=== PATIENT | female | born 1995 | race Hispanic/Latino ===

== ENCOUNTER 2019-07-16 15:36 | Inpatient (IN) | payer MEDICAID ==
[2019-07-16] MEDS ORDERED: fentaNYL 100 MCG/2 ML INJ IV PRN (16:02)
[2019-07-16] MEDS ORDERED: LACTATED RINGERS 1,000 ML ONE (16:04)
[2019-07-16] MEDS ORDERED: TERBUTALINE 1 MG/1 ML INJ IVP PRN (16:06)
[2019-07-16] MEDS ORDERED: LIDOCAINE (2%) 20 MG/1 ML VIAL 20 ML MDV INFILTRATI ONE (16:06)
[2019-07-16] MEDS ORDERED: MINERAL OIL 30 ML ORAL LIQD PO PRN (16:06)
[2019-07-16] MEDS ORDERED: ePHEDrine SULFATE 50 MG/1 ML INJ IV PRN (16:06)
[2019-07-16] MEDS ORDERED: TERBUTALINE 1 MG/1 ML INJ SUB-Q PRN (16:06)
[2019-07-16 16:33] LABS: Hematocrit 43.5 % (30.3-42.9); Hemoglobin 14.4 gm/dl (10.1-14.3); Mean Corpuscular HGB Conc 33 % (30-34); Mean Corpuscular Volume 78 fl (79-97); Platelet Count 228 K/mm3 (140-440); Red Blood Count 5.58 M/mm3 (3.65-5.03); Red Cell Distribution Width 15.1 % (13.2-15.2)
[2019-07-16] MEDS ORDERED: NALOXONE 2 MG/2 ML INJ IV PRN (16:38)
[2019-07-16] MEDS ORDERED: DEXMEDETOMIDINE 200 MCG/2 ML VIAL IV ONE (16:44)
[2019-07-16] MEDS ORDERED: fentaNYL-BUPIV 2 MCG/ML-0.125% 200 MCG/100 ML BAG EPIDURAL SCH (17:00)
[2019-07-16] MEDS ORDERED: OXYTOCIN 20 UNIT/1000ML DRIP 20 UNITS/1,000 ML BAG IV SCH (17:00)
[2019-07-16] MEDS ORDERED: LACTATED RINGERS 1,000 ML IV SCH (17:00)
--- NOTE | 2019-07-16 17:03 | Anesthesia Consultation ---
Anesthesia Consult and Med Hx Date of service: 07/16/19 - Airway Anesthetic Teeth Evaluation: Good ROM Head & Neck: Adequate Mental/Hyoid Distance: Adequate Mallampati Class: Class II Intubation Access Assessment: Good - Pulmonary Exam CTA: Yes - Cardiac Exam Cardiac Exam: RRR - Pre-Operative Health Status ASA Pre-Surgery Classification: ASA2, Emergency Proposed Anesthetic Plan: Epidural, Spinal - Pulmonary Hx Asthma: No COPD: No Hx Pneumonia: No - Cardiovascular System Hx Hypertension: No - Central Nervous System Hx Seizures: No Hx Psychiatric Problems: No - Endocrine Hx Renal Disease: No Hx End Stage Renal Disease: No Hx Hypothyroidism: No Hx Hyperthyroidism: No - Hematic Hx Anemia: No Hx Sickle Cell Disease: No - Other Systems Hx Alcohol Use: No
[2019-07-16] MEDS: ePHEDrine SULFATE 50 MG/1 ML INJ IV PRN ×3 (17:11→17:15)
[2019-07-16] MEDS ORDERED: PHENYLEPHRINE/NS 1,000 MCG/10 ML SYRINGE (OR USE) IV ONE (17:25)
--- NOTE | 2019-07-16 17:27 | History and Physical Report ---
History of Present Illness Date of examination: 07/16/19 Date of admission: 07/16/19 15:37 Chief complaint: Labor History of present illness: Past History : 1 Term Births: 0 Premature Births: 0 Living Children: 0 Para: 0 Mult. Births: 0 Prev : 0 Prev. attempt? 0 Aborta: 0 Elect. Ab: 0 Spont. 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 of genital herpes: no Partner hx. of genital herpes: no Rash, Viral, or Febrile illness since last LMP? no Genetic History Congenital Heart Defect: Mom: no Dad: no Santo Disease: Mom: no Dad: no Thalassemia Mom: no Dad: no Neural Tube Defect Mom: no Dad: no Down's Syndrome Mom: no Dad: no Berry-Sachs Mom: no Dad: no Sickle Cell Disease/Trait Mom: no Dad: no Hemophilia Mom: no Dad: no Muscular Dystrophy Mom: no Dad: no Cystic Fibrosis Mom: no Dad: no Dg Chorea Mom: no Dad: no Mental Retardation Mom: no Dad: no Fragile X Mom: no Dad: no Other Genetic/Chromosomal Disorder Mom: no Dad: no Child w/other defect Mom: no Dad: no Enviromental Exposures Xray Exposure: no Medication, drug, or alcohol use since LMP: no Chemical/Other Exposure: no Exposure to Cat Liter: no Hx of Parvovirus (Fifth Disease): no Occupational Exposure to Children: none Active Medications (reviewed today): None Current Allergies (reviewed today): No known allergies Tests: (1) Profile I ([id number]) HBsAg Screen Negative Negative *1 RPR Non Reactive Non Reactive *2 Rubella Antibodies, IgG 4.74 index Immune >0.99 *3 Non-immune <0.90 Equivocal 0.90 - 0.99 Immune >0.99 ABO Grouping B *4 Rh Factor Positive *5 Please note: Prior records for this patient's ABO / Rh type are not available for additional verification. Antibody Screen Negative Negative *6 WBC 7.9 x10E3/uL 3.4-10.8 *7 RBC 4.54 x10E6/uL 3.77-5.28 *8 Hemoglobin 13.2 g/dL 11.1-15.9 *9 Hematocrit 39.4 % 34.0-46.6 *10 MCV 87 fL 79-97 *11 MCH 29.1 pg 26.6-33.0 *12 MCHC 33.5 g/dL 31.5-35.7 *13 RDW 13.4 % 12.3-15.4 *14 Platelets 225 x10E3/uL 150-450 *15 Neutrophils 63 % Not Estab. *16 Lymphs 30 % Not Estab. *17 Monocytes 6 % Not Estab. *18 Eos 1 % Not Estab. *19 Basos 0 % Not Estab. *20 ! Immature Cells <No Reported Value> *21 Neutrophils (Absolute) 4.9 x10E3/uL 1.4-7.0 *22 Lymphs (Absolute) 2.4 x10E3/uL 0.7-3.1 *23 Monocytes(Absolute) 0.5 x10E3/uL 0.1-0.9 *24 Eos (Absolute) 0.1 x10E3/uL 0.0-0.4 *25 Baso (Absolute) 0.0 x10E3/uL 0.0-0.2 *26 ! Immature Granulocytes 0 % Not Estab. *27 ! Immature Grans (Abs) 0.0 x10E3/uL 0.0-0.1 *28 ! NRBC <No Reported Value> *29 Hematology Comments: <No Reported Value> *30 Tests: (2) Comp. Metabolic Panel (14) ([id number]) Glucose 71 mg/dL 65-99 *31 BUN 8 mg/dL 6-20 *32 Creatinine 0.68 mg/dL 0.57-1.00 *33 ! eGFR If NonAfricn Am 125 mL/min/1.73 >59 *34 ! eGFR If Africn Am 145 mL/min/1.73 >59 *35 BUN/Creatinine Ratio 12 9-23 *36 Sodium 137 mmol/L 134-144 *37 Potassium 4.6 mmol/L 3.5-5.2 *38 Chloride 103 mmol/L 96-106 *39 Carbon Dioxide, Total 21 mmol/L 20-29 *40 Calcium 9.2 mg/dL 8.7-10.2 *41 Protein, Total 6.6 g/dL 6.0-8.5 *42 Albumin 3.9 g/dL 3.5-5.5 *43 Globulin, Total 2.7 g/dL 1.5-4.5 *44 A/G Ratio 1.4 1.2-2.2 *45 Bilirubin, Total <0.2 mg/dL 0.0-1.2 *46 Alkaline Phosphatase 46 IU/L 39-117 *47 AST (SGOT) 10 IU/L 0-40 *48 ALT (SGPT) 6 IU/L 0-32 *49 Tests: (3) Cystic Fibrosis Profile (103337) ! CF, Screen Comment: *50 RESULTS: Negative for 32 mutations analyzed INTERPRETATION: This individual is negative for the mutations analyzed. This negative result may need further interpretation depending on the clinical indication. This result reduces but does not eliminate the risk to be a CF carrier. COMMENTS: The detection rate varies with ethnicity and is listed below. The presence of an undetected mutation in the CF gene cannot be ruled out. In the absence of family history, the remaining risk that a person with a negative result could have at least one CF mutation is listed in the table. If there is a family history of CF, these risk figures do not apply. As detailed information regarding this individual's family history would permit a more accurate assessment of this individual's risk to be a carrier of cystic fibrosis, please contact [employer] at for a revised report. Mutation Detection Detection rates are based on mutation Rates among Ethnic frequencies in patients affected with Groups cystic fibrosis. Among individuals with an atypical or mild presentation (e.g. congenital absence of the vas deferens, pancreatitis) detection rates may vary from those provided here: Carrier risk reduction when no family history Detection Ethnicity Rate Ashkenazi 08/17 to 97% Synagogue 08/16 to 90% (non-) -Senegalese to 69% 46 to 73% to 55% This interpretation is based on the clinical and family relationship information provided and the current understanding of the molecular genetics of this condition. MUTATIONS ANALYZED: G85E V520F I3178V 2183AA to G R117H G542X Q9739R 2184delA R334W S549N 394delTT 2789+5G to A R347H S549R 621+1G to T 3120+1G to A R347P G551D 711+1G to T 3659delC A455E R553X 1078delT 3849+10kbC to T ExfrcB323 R560T 1717-1G to A 3876delA [id number] H1945D 1898+1G to A 3905insT METHODS/LIMITATIONS: DNA is isolated from the sample and tested for the 32 CF mutations on the [employer] Platform ([employer] Regions of the CFTR gene are amplified enzymatically and subjected to a solution-phase multiplex allele-specific primer extension with subsequent hybridization to a bead array and fluorescence detection. Polymorphisms F508C, I506V and I507V are included in this panel to rule out false positive [id number] homozygotes. Reflex testing of 5T is included in the panel for R117H interpretation. False positive or negative results may occur for reasons that include genetic variants, blood transfusions, bone marrow transplantation, erroneous representation of family relationships or contamination of a sample with maternal cells. REFERENCES: 1. Updates on Carrier Screening for Cystic Fibrosis. (2011) Am J Ob Gynecol 117(4):5770-8165 2. Vik, et al. (2004) [facility] 6:387-91 3. Andrea et al. (2002) [facility] Med 4:379-391 4. Preconception and carrier screening for cystic fibrosis: (2001)ACOG.ACMG publication Results Released By: Brandt Cates M.D., [employer] Report Released By: Brandt Cates M.D., [employer] ! Comment: SPRCS *51 The assay provides information intended to be used for carrier screening in adults of reproductive age, as an aid in screening, and as a confirmatory test for another medically established diagnosis in newborns and children. The test is not indicated for use in diagnostic testing, pre-implantation screening, or for any stand-alone diagnostic purposes without confirmation by another medically established diagnostic product or procedure. Tests: (4) HB Solu + Rflx Frac (529265) Hemoglobin (Hgb) Solubility Negative Negative *52 Tests: (5) Panel 289252 (814085) HIV Screen 4th Generation wRfx Non Reactive Non Reactive *53 Tests: (6) HCV Ab w/Rflx to Verification (737541) ! HCV Ab <0.1 s/co ratio 0.0-0.9 *54 Tests: (7) Comment: (419188) ! Comment: SPRCS *55 Non reactive HCV antibody screen is consistent with no HCV infection, unless recent infection is suspected or other evidence exists to indicate HCV infection. Past History - Obstetrical History Expected Date of Delivery: 07/26/19 Actual Gestation: 38 Week(s) 4 Day(s) : 1 Medications and Allergies Allergies Allergy/AdvReac Type Severity Reaction Status Date / Time No Known Allergies Allergy Unverified 07/15/19 06:09 Active Meds: Active Medications Ephedrine Sulfate (Ephedrine Sulfate) 10 mg IV Q2M PRN PRN Reason: Hypotension Fentanyl (Sublimaze) 100 mcg IV Q2H PRN PRN Reason: labor pain Oxytocin/Sodium Chloride (Pitocin/Ns 20 Unit/1000ml Drip) 20 units in 1,000 mls @ 125 mls/hr IV DIRECT YUSRA Lactated Ringer's (Lactated Ringers) 1,000 mls @ 125 mls/hr IV DIRECT YUSRA Fentanyl/Bupivacaine/Sodium Chlor (Fentanyl-Bupiv 2 Mcg/Ml-0.125%) 200 mcg in 100 mls @ 12 mls/hr EPIDURAL TITR YUSRA; Protocol Last Admin: 07/16/19 17:17 Dose: 12 mls/hr Documented by: Mineral Oil (Mineral Oil) 30 ml PO QHS PRN PRN Reason: Constipation Naloxone HCl (Naloxone) 0.2 mg IV Q5M PRN PRN Reason: Respiratory sedation Terbutaline Sulfate (Brethine) 0.25 mg SUB-Q ONCE PRN PRN Reason: Hyperstimulation/Hypertonicity Terbutaline Sulfate (Brethine) 0.25 mg IVP ONCE PRN PRN Reason: Hyperstimulation/Hypertonicity Review of Systems All systems: negative Genitourinary: contractions - Vital Signs Vital signs: Vital Signs Pulse Pulse Ox 103 H 96 07/16/19 15:37 07/16/19 15:37 Temp Pulse Resp BP Pulse Ox 130 H 18 88/52 100 07/16/19 17:23 07/16/19 17:19 07/16/19 17:23 07/16/19 17:22 - Physical Exam Breasts: Positive: deferred Lungs: Positive: Normal air movement Abdomen: Positive: normal appearance. Negative: tenderness Genitourinary (Female): Positive: normal external genitalia, normal perenium Vulva: both: normal Uterus: Positive: enlarged. Negative: tender Anus/Rectum: Positive: normal perianal skin Extremities: Positive: normal. Negative: tenderness, edema - Obstetrical FHR: category 2 (tachycardia most likely d/t maximum ephedrine and neosynephrine for hypotenison after epidural. Good variability) FHR comments: AROM, moderate meconium. Decision was made to place IUPC/ISE once tachycardia noted. ISE/IUPC placed without difficulty. Uterine Contraction Monitor Mode: Internal Cervical Dilatation: 7.5 Cervical Effacement Percentage: 90 station: -1 Uterine Contraction Pattern: Irregular Results Result Diagrams: 07/16/19 16:10 Abnormal lab results 07/16/19 Range/Units 16:10 WBC 17.0 H (4.5-11.0) K/mm3 RBC 5.58 H (3.65-5.03) M/mm3 Hgb 14.4 H (10.1-14.3) gm/dl Hct 43.5 H (30.3-42.9) % MCV 78 L (79-97) fl MCH 26 L (28-32) pg All other labs normal. Assessment and Plan Will observe closely. - Patient Problems (1) 38 weeks gestation of Current Visit: Yes Status: Acute (2) Active labor at term Current Visit: Yes Status: Acute
--- NOTE | 2019-07-16 23:32 | Progress Note ---
Assessment and Plan - Patient Problems (1) 38 weeks gestation of Current Visit: Yes Status: Acute (2) Active labor at term Current Visit: Yes Status: Acute (3) Failure of cervical dilation Current Visit: Yes Status: Acute Plan to address problem: Probable asynclitic with no change with multiple position changes. Options reviewed: continue LIBERTY vs c/s. Risks with c/s were reviewed that included but not limited to, bleeding infection, injury to her bowels/bladder and she may require c/s with all subsequent pregnancies. Questions were encouraged and answered, she voiced understanding and desires to proceed with c/s, consents were reviewed and signed. Subjective - Subjective Date of service: 07/16/19 Principal diagnosis: IUP@38weeks, failure to dilate Interval history: Past History : 1 Term Births: 0 Premature Births: 0 Living Children: 0 Para: 0 Mult. Births: 0 Prev : 0 Prev. attempt? 0 Aborta: 0 Elect. Ab: 0 Spont. 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 of genital herpes: no Partner hx. of genital herpes: no Rash, Viral, or Febrile illness since last LMP? no Genetic History Congenital Heart Defect: Mom: no Dad: no Santo Disease: Mom: no Dad: no Thalassemia Mom: no Dad: no Neural Tube Defect Mom: no Dad: no Down's Syndrome Mom: no Dad: no Berry-Sachs Mom: no Dad: no Sickle Cell Disease/Trait Mom: no Dad: no Hemophilia Mom: no Dad: no Muscular Dystrophy Mom: no Dad: no Cystic Fibrosis Mom: no Dad: no Adams Chorea Mom: no Dad: no Mental Retardation Mom: no Dad: no Fragile X Mom: no Dad: no Other Genetic/Chromosomal Disorder Mom: no Dad: no Child w/other defect Mom: no Dad: no Enviromental Exposures Xray Exposure: no Medication, drug, or alcohol use since LMP: no Chemical/Other Exposure: no Exposure to Cat Liter: no Hx of Parvovirus (Fifth Disease): no Occupational Exposure to Children: none Active Medications (reviewed today): None Current Allergies (reviewed today): No known allergies Tests: (1) Profile I ([id number]) HBsAg Screen Negative Negative *1 RPR Non Reactive Non Reactive *2 Rubella Antibodies, IgG 4.74 index Immune >0.99 *3 Non-immune <0.90 Equivocal 0.90 - 0.99 Immune >0.99 ABO Grouping B *4 Rh Factor Positive *5 Please note: Prior records for this patient's ABO / Rh type are not available for additional verification. Antibody Screen Negative Negative *6 WBC 7.9 x10E3/uL 3.4-10.8 *7 RBC 4.54 x10E6/uL 3.77-5.28 *8 Hemoglobin 13.2 g/dL 11.1-15.9 *9 Hematocrit 39.4 % 34.0-46.6 *10 MCV 87 fL 79-97 *11 MCH 29.1 pg 26.6-33.0 *12 MCHC 33.5 g/dL 31.5-35.7 *13 RDW 13.4 % 12.3-15.4 *14 Platelets 225 x10E3/uL 150-450 *15 Neutrophils 63 % Not Estab. *16 Lymphs 30 % Not Estab. *17 Monocytes 6 % Not Estab. *18 Eos 1 % Not Estab. *19 Basos 0 % Not Estab. *20 ! Immature Cells <No Reported Value> *21 Neutrophils (Absolute) 4.9 x10E3/uL 1.4-7.0 *22 Lymphs (Absolute) 2.4 x10E3/uL 0.7-3.1 *23 Monocytes(Absolute) 0.5 x10E3/uL 0.1-0.9 *24 Eos (Absolute) 0.1 x10E3/uL 0.0-0.4 *25 Baso (Absolute) 0.0 x10E3/uL 0.0-0.2 *26 ! Immature Granulocytes 0 % Not Estab. *27 ! Immature Grans (Abs) 0.0 x10E3/uL 0.0-0.1 *28 ! NRBC <No Reported Value> *29 Hematology Comments: <No Reported Value> *30 Tests: (2) Comp. Metabolic Panel (14) ([id number]) Glucose 71 mg/dL 65-99 *31 BUN 8 mg/dL 6-20 *32 Creatinine 0.68 mg/dL 0.57-1.00 *33 ! eGFR If NonAfricn Am 125 mL/min/1.73 >59 *34 ! eGFR If Africn Am 145 mL/min/1.73 >59 *35 BUN/Creatinine Ratio 12 9-23 *36 Sodium 137 mmol/L 134-144 *37 Potassium 4.6 mmol/L 3.5-5.2 *38 Chloride 103 mmol/L 96-106 *39 Carbon Dioxide, Total 21 mmol/L 20-29 *40 Calcium 9.2 mg/dL 8.7-10.2 *41 Protein, Total 6.6 g/dL 6.0-8.5 *42 Albumin 3.9 g/dL 3.5-5.5 *43 Globulin, Total 2.7 g/dL 1.5-4.5 *44 A/G Ratio 1.4 1.2-2.2 *45 Bilirubin, Total <0.2 mg/dL 0.0-1.2 *46 Alkaline Phosphatase 46 IU/L 39-117 *47 AST (SGOT) 10 IU/L 0-40 *48 ALT (SGPT) 6 IU/L 0-32 *49 Tests: (3) Cystic Fibrosis Profile ([id number]) ! CF, Screen Comment: *50 RESULTS: Negative for 32 mutations analyzed INTERPRETATION: This individual is negative for the mutations analyzed. This negative result may need further interpretation depending on the clinical indication. This result reduces but does not eliminate the risk to be a CF carrier. COMMENTS: The detection rate varies with ethnicity and is listed below. The presence of an undetected mutation in the CF gene cannot be ruled out. In the absence of family history, the remaining risk that a person with a negative result could have at least one CF mutation is listed in the table. If there is a family history of CF, these risk figures do not apply. As detailed information regarding this individual's family history would permit a more accurate assessment of this individual's risk to be a carrier of cystic fibrosis, please contact [facility] at for a revised report. Mutation Detection Detection rates are based on mutation Rates among Ethnic frequencies in patients affected with Groups cystic fibrosis. Among individuals with an atypical or mild presentation (e.g. congenital absence of the vas deferens, pancreatitis) detection rates may vary from those provided here: Carrier risk reduction when no family history Detection Ethnicity Rate Ashkenazi 08/17 to 97% Adventism 08/16 to 90% (non-) -Zimbabwean to 69% 46 to 73% to 55% This interpretation is based on the clinical and family relationship information provided and the current understanding of the molecular genetics of this condition. MUTATIONS ANALYZED: G85E V520F D9257X 2183AA to G R117H G542X I2515S 2184delA R334W S549N 394delTT 2789+5G to A R347H S549R 621+1G to T 3120+1G to A R347P G551D 711+1G to T 3659delC A455E R553X 1078delT 3849+10kbC to T RhborT706 R560T 1717-1G to A 3876delA BoiklB407 A1775M 1898+1G to A 3905insT METHODS/LIMITATIONS: DNA is isolated from the sample and tested for the 32 CF mutations on the [employer] Array Platform ([employer]). Regions of the CFTR gene are amplified enzymatically and subjected to a solution-phase multiplex allele-specific primer extension with subsequent hybridization to a bead array and fluorescence detection. Polymorphisms F508C, I506V and I507V are included in this panel to rule out false positive [id number] homozygotes. Reflex testing of 5T is included in the panel for R117H interpretation. False positive or negative results may occur for reasons that include genetic variants, blood transfusions, bone marrow transplantation, erroneous representation of family relationships or contamination of a sample with maternal cells. REFERENCES: 1. Updates on Carrier Screening for Cystic Fibrosis. (2011) Am J Ob Gynecol 117(4):3609-3634 2. Vik et al. (2004) [facility] 6:387-91 3. Andrea et al. (2002) [facility] 4:379-391 4. Preconception and carrier screening for cystic fibrosis: (2001)ACOG.ACMG publication Results Released By: Brandt Cates M.D., Chairman President And Chief Executive Officer Report Released By: Brandt Cates M.D., Chairman President And Chief Executive Officer ! Comment: SPRCS *51 The assay provides information intended to be used for carrier screening in adults of reproductive age, as an aid in screening, and as a confirmatory test for another medically established diagnosis in newborns and children. The test is not indicated for use in diagnostic testing, pre-implantation screening, or for any stand-alone diagnostic purposes without confirmation by another medically established diagnostic product or procedure. Tests: (4) HB Solu + Rflx Fra (096789) Hemoglobin (Hgb) Solubility Negative Negative *52 Tests: (5) Panel 024456 (577965) HIV Screen 4th Generation wRfx Non Reactive Non Reactive *53 Tests: (6) HCV Ab w/Rflx to Verification (808939) ! HCV Ab <0.1 s/co ratio 0.0-0.9 *54 Tests: (7) Comment: (503046) ! Comment: SPRCS *55 Non reactive HCV antibody screen is consistent with no HCV infection, unless recent infection is suspected or other evidence exists to indicate HCV infection. Patient reports: contractions Objective - Vital Signs Vital Signs: Vital Signs - 12hr 07/16/19 07/16/19 07/16/19 15:37 15:42 15:43 Temperature Pulse Rate 103 H 85 82 Respiratory Rate Blood Pressure 122/68 O2 Sat by Pulse 96 100 Oximetry 07/16/19 07/16/19 07/16/19 15:47 15:52 15:57 Temperature Pulse Rate 90 85 72 Respiratory Rate Blood Pressure O2 Sat by Pulse 100 100 100 Oximetry 07/16/19 07/16/19 07/16/19 15:59 16:02 16:05 Temperature Pulse Rate 86 77 89 Respiratory Rate Blood Pressure O2 Sat by Pulse 92 99 92 Oximetry 07/16/19 07/16/19 07/16/19 16:07 16:12 16:26 Temperature Pulse Rate 73 82 83 Respiratory Rate Blood Pressure O2 Sat by Pulse 99 100 97 Oximetry 07/16/19 07/16/19 07/16/19 16:32 16:37 16:42 Temperature Pulse Rate 100 H 96 H 83 Respiratory Rate Blood Pressure O2 Sat by Pulse 98 97 100 Oximetry 07/16/19 07/16/19 07/16/19 16:47 16:49 16:50 Temperature Pulse Rate 90 76 85 Respiratory Rate Blood Pressure 122/74 O2 Sat by Pulse 100 84 Oximetry 07/16/19 07/16/19 07/16/19 16:51 16:52 16:55 Temperature Pulse Rate 86 99 H 85 Respiratory Rate Blood Pressure 122/75 121/77 110/56 O2 Sat by Pulse 98 Oximetry 07/16/19 07/16/19 07/16/19 16:57 16:59 17:01 Temperature Pulse Rate 89 93 H 107 H Respiratory Rate Blood Pressure 113/58 109/63 112/61 O2 Sat by Pulse 97 Oximetry 07/16/19 07/16/19 07/16/19 17:02 17:03 17:05 Temperature Pulse Rate 101 H 99 H 92 H Respiratory Rate Blood Pressure 118/60 107/53 O2 Sat by Pulse 99 Oximetry 07/16/19 07/16/19 07/16/19 17:07 17:09 17:10 Temperature Pulse Rate 105 H 90 103 H Respiratory Rate Blood Pressure 107/54 97/51 95/52 O2 Sat by Pulse 99 Oximetry 07/16/19 07/16/19 07/16/19 17:11 17:12 17:13 Temperature Pulse Rate 104 H 101 H 99 H Respiratory Rate Blood Pressure 92/50 87/48 90/52 O2 Sat by Pulse 97 Oximetry 07/16/19 07/16/19 07/16/19 17:14 17:15 17:17 Temperature Pulse Rate 100 H 108 H 119 H Respiratory Rate Blood Pressure 94/55 101/55 91/52 O2 Sat by Pulse 97 Oximetry 07/16/19 07/16/19 07/16/19 17:18 17:19 17:21 Temperature Pulse Rate 114 H 108 H 121 H Respiratory 18 Rate Blood Pressure 91/50 96/57 92/52 O2 Sat by Pulse Oximetry 07/16/19 07/16/19 07/16/19 17:22 17:23 17:25 Temperature Pulse Rate 132 H 130 H 71 Respiratory Rate Blood Pressure 88/52 124/62 O2 Sat by Pulse 100 Oximetry 07/16/19 07/16/19 07/16/19 17:27 17:29 17:31 Temperature Pulse Rate 88 92 H 77 Respiratory Rate Blood Pressure 130/60 117/55 122/62 O2 Sat by Pulse 100 Oximetry 07/16/19 07/16/19 07/16/19 17:32 17:35 17:37 Temperature Pulse Rate 106 H 111 H 118 H Respiratory Rate Blood Pressure 102/59 111/60 O2 Sat by Pulse 98 96 Oximetry 07/16/19 07/16/19 07/16/19 17:42 17:45 17:47 Temperature Pulse Rate 101 H 93 H 104 H Respiratory Rate Blood Pressure 123/67 117/56 O2 Sat by Pulse 100 100 Oximetry 07/16/19 07/16/19 07/16/19 17:49 17:51 17:52 Temperature Pulse Rate 104 H 101 H 101 H Respiratory Rate Blood Pressure 94/52 99/52 O2 Sat by Pulse 100 Oximetry 07/16/19 07/16/19 07/16/19 17:53 17:57 17:58 Temperature 97.8 F Pulse Rate 104 H 118 H 113 H Respiratory Rate Blood Pressure 100/56 97/54 O2 Sat by Pulse 99 Oximetry 07/16/19 07/16/19 07/16/19 18:03 18:08 18:11 Temperature Pulse Rate 117 H 119 H 117 H Respiratory Rate Blood Pressure 95/51 93/52 O2 Sat by Pulse 99 96 94 Oximetry 07/16/19 07/16/19 07/16/19 18:13 18:18 18:21 Temperature Pulse Rate 119 H 109 H 112 H Respiratory Rate Blood Pressure 92/51 92/54 O2 Sat by Pulse 95 96 94 Oximetry 07/16/19 07/16/19 07/16/19 18:23 18:25 18:26 Temperature Pulse Rate 111 H 110 H 106 H Respiratory Rate Blood Pressure 87/49 92/51 O2 Sat by Pulse 97 Oximetry 07/16/19 07/16/19 07/16/19 18:28 18:33 18:34 Temperature Pulse Rate 107 H 89 94 H Respiratory Rate Blood Pressure 96/51 127/84 O2 Sat by Pulse 98 98 92 Oximetry 07/16/19 07/16/19 07/16/19 18:38 18:39 18:42 Temperature Pulse Rate 98 H 65 105 H Respiratory Rate Blood Pressure 113/57 O2 Sat by Pulse 97 86 Oximetry 07/16/19 07/16/19 07/16/19 18:43 18:48 18:53 Temperature Pulse Rate 105 H 99 H 109 H Respiratory Rate Blood Pressure 105/55 103/56 95/50 O2 Sat by Pulse 98 98 98 Oximetry 07/16/19 07/16/1907/16/19 18:58 18:59 19:03 Temperature Pulse Rate 109 H 108 H 102 H Respiratory Rate Blood Pressure 112/58 O2 Sat by Pulse 99 100 Oximetry 07/16/19 07/16/19 07/16/19 19:04 19:08 19:09 Temperature Pulse Rate 116 H 98 H 96 H Respiratory Rate Blood Pressure 86/50 113/73 O2 Sat by Pulse 100 Oximetry 07/16/19 07/16/19 07/16/19 19:13 19:17 19:18 Temperature 98.5 F Pulse Rate 98 H 94 H 94 H Respiratory 18 Rate Blood Pressure 101/59 O2 Sat by Pulse 100 99 99 Oximetry 07/16/19 07/16/19 07/16/19 19:23 19:28 19:33 Temperature Pulse Rate 97 H 100 H 103 H Respiratory Rate Blood Pressure 102/60 101/58 100/58 O2 Sat by Pulse 99 99 95 Oximetry 07/16/19 07/16/19 07/16/19 19:38 19:39 19:43 Temperature Pulse Rate 109 H 98 H 96 H Respiratory Rate Blood Pressure 106/60 O2 Sat by Pulse 99 99 Oximetry 07/16/19 07/16/19 07/16/19 19:44 19:48 19:49 Temperature Pulse Rate 104 H 97 H 93 H Respiratory Rate Blood Pressure 107/56 104/63 O2 Sat by Pulse 100 Oximetry 07/16/19 07/16/19 07/16/19 19:53 19:58 19:59 Temperature Pulse Rate 98 H 126 H 131 H Respiratory Rate Blood Pressure 107/55 115/73 O2 Sat by Pulse 100 99 Oximetry 07/16/19 07/16/19 07/16/19 20:03 20:04 20:08 Temperature Pulse Rate 110 H 117 H 103 H Respiratory Rate Blood Pressure 100/55 O2 Sat by Pulse 95 100 Oximetry 07/16/19 07/16/19 07/16/19 20:09 20:13 20:18 Temperature Pulse Rate 99 H 104 H 97 H Respiratory Rate Blood Pressure 109/61 102/61 104/62 O2 Sat by Pulse 99 100 Oximetry 07/16/19 07/16/19 07/16/19 20:20 20:23 20:28 Temperature Pulse Rate 72 104 H 118 H Respiratory Rate Blood Pressure 119/65 O2 Sat by Pulse 94 100 99 Oximetry 07/16/19 07/16/19 07/16/19 20:29 20:33 20:38 Temperature Pulse Rate 121 H 116 H 86 Respiratory Rate Blood Pressure 120/75 122/72 O2 Sat by Pulse 100 94 Oximetry 07/16/19 07/16/19 07/16/19 20:39 20:40 20:43 Temperature Pulse Rate 85 105 H 104 H Respiratory Rate Blood Pressure 135/62 O2 Sat by Pulse 91 98 Oximetry 07/16/19 07/16/19 07/16/19 20:44 20:45 20:48 Temperature Pulse Rate 113 H 33 L 104 H Respiratory Rate Blood Pressure 123/58 122/59 O2 Sat by Pulse 94 99 Oximetry 07/16/19 07/16/19 07/16/19 20:53 20:54 20:58 Temperature Pulse Rate 107 H 101 H 91 H Respiratory Rate Blood Pressure 122/58 117/57 O2 Sat by Pulse 92 98 Oximetry 07/16/19 07/16/19 07/16/19 21:03 21:08 21:09 Temperature Pulse Rate 94 H 83 91 H Respiratory Rate Blood Pressure 113/58 131/74 O2 Sat by Pulse 100 98 Oximetry 07/16/19 07/16/19 07/16/19 21:12 21:13 21:14 Temperature Pulse Rate 85 99 H 100 H Respiratory Rate Blood Pressure 113/63 O2 Sat by Pulse 90 96 Oximetry 07/16/19 07/16/19 07/16/19 21:18 21:23 21:24 Temperature Pulse Rate 111 H 79 90 Respiratory Rate Blood Pressure 112/56 O2 Sat by Pulse 99 100 Oximetry 07/16/19 07/16/19 07/16/19 21:28 21:33 21:38 Temperature Pulse Rate 90 87 108 H Respiratory Rate Blood Pressure 110/59 111/59 O2 Sat by Pulse 98 98 98 Oximetry 07/16/19 07/16/19 07/16/19 21:40 21:43 21:44 Temperature Pulse Rate 96 H 92 H 93 H Respiratory Rate Blood Pressure 137/88 118/65 O2 Sat by Pulse 99 Oximetry 07/16/19 07/16/19 07/16/19 21:48 21:49 21:53 Temperature Pulse Rate 125 H 120 H 82 Respiratory Rate Blood Pressure 134/63 O2 Sat by Pulse 98 98 Oximetry 07/16/19 07/16/19 07/16/19 21:58 21:59 22:03 Temperature Pulse Rate 92 H 95 H 104 H Respiratory Rate Blood Pressure 127/75 O2 Sat by Pulse 99 98 Oximetry 07/16/19 07/16/19 07/16/19 22:05 22:07 22:08 Temperature Pulse Rate 100 H 91 H 100 H Respiratory Rate Blood Pressure 130/82 O2 Sat by Pulse 93 97 Oximetry 07/16/19 07/16/19 07/16/19 22:09 22:13 22:14 Temperature Pulse Rate 90 113 H 97 H Respiratory Rate Blood Pressure 105/58 124/71 O2 Sat by Pulse 93 98 Oximetry 07/16/19 07/16/19 07/16/19 22:19 22:24 22:25 Temperature Pulse Rate 97 H 107 H 113 H Respiratory Rate Blood Pressure 141/71 O2 Sat by Pulse 97 95 Oximetry 07/16/19 07/16/19 07/16/19 22:26 22:29 22:33 Temperature Pulse Rate 44 L 95 H 93 H Respiratory Rate Blood Pressure 115/58 105/56 O2 Sat by Pulse 88 Oximetry 07/16/19 07/16/19 07/16/19 22:44 22:45 22:49 Temperature Pulse Rate 102 H 105 H 99 H Respiratory Rate Blood Pressure 147/65 132/79 O2 Sat by Pulse 95 93 97 Oximetry 07/16/19 07/16/19 07/16/19 22:50 22:54 22:55 Temperature Pulse Rate 105 H 106 H 95 H Respiratory Rate Blood Pressure 126/71 O2 Sat by Pulse 94 97 Oximetry 07/16/19 07/16/19 07/16/19 22:56 22:59 23:03 Temperature Pulse Rate 105 H 115 H 113 H Respiratory Rate Blood Pressure 124/64 O2 Sat by Pulse 93 88 91 Oximetry 07/16/19 07/16/19 07/16/19 23:04 23:05 23:09 Temperature Pulse Rate 100 H 99 H 87 Respiratory Rate Blood Pressure 127/65 O2 Sat by Pulse 97 95 Oximetry 07/16/19 07/16/19 07/16/19 23:10 23:14 23:15 Temperature Pulse Rate 103 H 98 H 97 H Respiratory Rate Blood Pressure 129/61 131/68 O2 Sat by Pulse 96 Oximetry 07/16/19 07/16/19 23:18 23:19 Temperature Pulse Rate 99 H 112 H Respiratory Rate Blood Pressure 124/60 O2 Sat by Pulse 91 Oximetry - Exam Breasts: deferred Lungs: Normal air movement Abdomen: Present: normal appearance Vulva: both: normal Uterus: Present: firm, fundal height above umbilicus. Absent: tenderness FHR: category 1 Uterine Contraction Monitor Mode: External Cervical Dilatation: 7 Cervical Effacement Percentage: 90 station: -1 Uterine Contraction Pattern: Regular - Labs Labs: Abnormal Labs 07/16/19 16:10 WBC 17.0 H RBC 5.58 H Hgb 14.4 H Hct 43.5 H MCV 78 L MCH 26 L Laboratory Results - last 24 hr 07/16/19 07/16/19 07/16/19 16:10 16:10 16:10 WBC 17.0 H RBC 5.58 H Hgb 14.4 H Hct 43.5 H MCV 78 L MCH 26 L MCHC 33 RDW 15.1 Plt Count 228 Syphilis IgG Antibody Non-reactive Blood Type B POSITIVE Antibody Screen Negative
[2019-07-17] MEDS ORDERED: BICITRA ORAL LIQD 30ML PO ONE (00:12)
[2019-07-17] MEDS ORDERED: METOCLOPRAMIDE 10 MG/2 ML INJ IV ONE (00:12)
[2019-07-17] MEDS ORDERED: FAMOTIDINE 20 MG/2 ML INJ IV ONE (00:12)
[2019-07-17] MEDS ORDERED: BUPIVACAINE/PF (0.5%) 5 MG/1 ML 10 ML VIAL INFILTRATI ONE (00:49)
[2019-07-17] MEDS ORDERED: PROMETHAZINE 25 MG TAB PO PRN (00:55)
[2019-07-17] MEDS ORDERED: ONDANSETRON 4 MG/2 ML INJ IV PRN ×2 (00:55→02:26)
[2019-07-17] MEDS ORDERED: HYDROmorphone 1 MG/1 ML INJ IV PRN ×2 (00:55)
[2019-07-17] MEDS ORDERED: PROMETHAZINE 25 MG RECT SUPP PR PRN ×2 (00:55→02:26)
[2019-07-17] MEDS ORDERED: NALOXONE 0.4 MG/1 ML INJ IV PRN ×2 (00:55→02:26)
--- NOTE | 2019-07-17 00:55 | Anesthesia Day of Surgery ---
Anesthesia Day of Surgery - Day of Surgery Patient Examined: Yes Patient H&P Reviewed: Yes Patient is NPO: Yes
[2019-07-17] MEDS ORDERED: LACTATED RINGERS 1,000 ML IV SCH (01:00)
[2019-07-17] MEDS ORDERED: ceFAZolin/Water 2 GM/20 ML 2 GM/20 ML SYRINGE IV NR (01:00)
[2019-07-17] MEDS ORDERED: fentaNYL-BUPIV 2 MCG/ML-0.125% 200 MCG/100 ML BAG EPIDURAL SCH (01:00)
[2019-07-17] MEDS ORDERED: OXYTOCIN 20 UNIT/1000ML DRIP 20 UNITS/1,000 ML BAG IV SCH ×2 (01:00→03:00)
[2019-07-17] MEDS ORDERED: ceFAZolin/STERILE WATER 2 GM/20 ML SYRINGE IV ONE (01:15)
[2019-07-17] MEDS ORDERED: DEXMEDETOMIDINE 200 MCG/2 ML VIAL IV ONE ×2 (01:22→02:18)
[2019-07-17] MEDS ORDERED: LIDOCAINE 2%/EPINEPHRINE 1:200,000 VIAL (20 ML) INFILTRATI ONE (01:22)
[2019-07-17] MEDS ORDERED: PHENYLEPHRINE/NS 1,000 MCG/10 ML SYRINGE (OR USE) IV ONE (01:22)
[2019-07-17] MEDS ORDERED: ONDANSETRON 4 MG/2 ML INJ ONE (01:22)
[2019-07-17] MEDS ORDERED: SODIUM CHLORIDE 0.9% IRR 1,500 ML BOTTLE IR ONE (01:30)
[2019-07-17] MEDS ORDERED: WATER FOR IRRIG STERILE 1,500 ML BOTTLE IR ONE (01:30)
[2019-07-17] MEDS ORDERED: KETOROLAC 30 MG/1 ML INJ ONE (02:18)
[2019-07-17] MEDS ORDERED: SIMETHICONE 80 MG CHEW TAB PO PRN (02:26)
[2019-07-17] MEDS ORDERED: IBUPROFEN 800 MG TAB PO PRN (02:26)
[2019-07-17] MEDS ORDERED: ACETAMINOPHEN 325 MG TAB PO PRN (02:26)
[2019-07-17] MEDS ORDERED: LANOLIN/ZINC/DIMETHICONE (LANSINOH) 7 GM TP PRN (02:26)
[2019-07-17] MEDS ORDERED: ACETAMINOPHEN 650 MG RECT SUPP PR PRN (02:26)
[2019-07-17] MEDS ORDERED: MORPHINE 2 MG/1 ML INJ IV PRN (02:26)
[2019-07-17] MEDS ORDERED: MORPHINE 4 MG/1 ML INJ IV PRN (02:26)
[2019-07-17] MEDS ORDERED: WITCH HAZEL/ GLYCERIN PAD TP PRN (02:26)
--- NOTE | 2019-07-17 02:45 | Operative Report ---
Operative Report Operative Report: Date of procedure: 07/17/2019 Pre-operative diagnosis: 1. Intrauterine at 38 weeks 2. Failure to dilate 3. Thick meconium Post-operative diagnosis: 1. Intrauterine at 38 weeks 2. Failure to dilate 3. Thick meconium Procedure name(s): Primary low transverse section Surgeon: Linda Lang MD [employer] Director: Freddy Knox Anesthesia: Epidural EBL: 500 mL Complications: None Findings: Grossly normal uterus, tubes and ovaries bilaterally. Male infant weight 6 lbs. 15 oz. Apgars 8 at 1 minute and 9 at 5 minutes Specimen(s): None Procedure: The patient was brought to the operating room. A epidural anesthesia was placed bolused. She was then placed in left lateral tilt. Prepped and draped in the usual sterile manner. Timeout was performed. After testing for adequate anesthesia level, a Pfannenstiel incision was made. This incision was taken down to the fascia. The fascia was then nicked in the midline. This incision was extended out laterally with Pascal scissors. The fascia was then sharply and bluntly from the underlying rectus muscles. The rectus muscles were bluntly and sharply . The peritoneum was then entered with the cable tool operator's fingers. This incision was spread vertically with care not to damage the bladder below. The bladder flap was then formed sharply and bluntly with Metzenbaum scissors. A transverse incision was made in lower uterine segment. This incision was extended laterally with the operators fingers. The amniotic sac was then entered bluntly with the cable tool operator's fingers. The infant was delivered from the vertex position ROP. Bulb suction on the mother's abdomen. Cord was double clamped and cut. The was then passed to the nursery personnel who were in attendance. The above scores were given by the nursery personnel. The placenta was then bluntly removed. The uterus was then externalized and wiped clean the remaining products. The uterine incision was closed in layers. The first incision was closed in a locking manner using 0 Vicryl. This was followed by imbricating stitch also with 0 Vicryl. This closure was hemostatic. Surgicel was placed. The bladder flap was copiously irrigated and found to be hemostatic. The pelvis was copiously irrigated and found to be hemostatic. The uterus was then placed back to the patient's abdomen. The retractors were removed. The rectus muscles were inspected and found to be hemostatic. The rectus muscles were approximated with 3-0 vicryl simple stitch x3. The fascia was then closed in a running manner using 0 Vicryl. This incision was hemostatic irrigation Bovie. The subcutaneous adipose tissue was approximated with 3-0 vicryl simple stitch x3. The skin was reapproximated with 4-0 Vicryl subcuticularly. The patient tolerated procedure well. Her urine was clear. The was admitted to the well baby nursery. The patient was accompanied to recovery room in good condition. Instrument count correct 3.
[2019-07-17] MEDS ORDERED: D5W/LACTATED RINGERS 1,000 ML IV SCH (03:00)
[2019-07-17] MEDS: oxyCODONE /ACETAMINOPHEN 5-325MG TAB PO PRN ×3 (06:15→23:57)
[2019-07-17] MEDS: ceFAZolin/NS 1 GM/50 ML 1 GM/50 ML BAG IV SCH ×2 (08:38→15:58)
--- NOTE | 2019-07-17 09:36 | Progress Note ---
Assessment and Plan A: Pt is 24 y.o. s/p d/t failure to dilate early this AM. P: Continue with care Subjective - Subjective Date of service: 07/17/19 (Pt states doing well after .) Principal diagnosis: IUP@38weeks, failure to dilate Patient reports: pain well controlled [place]: doing well Objective - Vital Signs Latest vital signs: Vital Signs Temp Pulse Resp BP BP Pulse Ox 07/17/19 08:40 97.9 F 89 20 101/56 95 07/17/19 04:20 98.5 F 81 18 102/55 96 07/17/19 04:07 18 07/17/19 03:37 20 07/17/19 03:30 98.4 F 88 22 111/64 95 07/17/19 03:15 85 23 107/61 97 07/17/19 03:00 95 H 25 H 109/70 98 07/17/19 02:45 92 H 25 H 109/67 98 07/17/19 02:30 97 H 29 H 110/59 99 07/17/19 02:25 95 H 29 H 107/62 99 07/17/19 02:20 98.4 F 111 H 21 102/68 100 07/17/19 00:57 103 H 94 07/17/19 00:54 98 H 94 07/17/19 00:53 102 H 126/67 07/17/19 00:50 111 H 126/70 92 07/17/19 00:49 85 97 07/17/19 00:43 118 H 145/81 94 07/17/19 00:38 98 H 134/85 98 07/17/19 00:33 98 H 127/76 95 07/17/19 00:31 104 H 92 07/17/19 00:28 86 128/72 96 07/17/19 00:23 104 H 128/71 91 07/17/19 00:20 85 94 07/17/19 00:18 97 H 126/73 94 07/17/19 00:13 109 H 133/80 93 07/17/19 00:09 96 H 94 07/17/19 00:08 92 H 130/76 95 07/17/19 00:03 95 H 121/74 89 07/16/19 23:55 105 H 94 07/16/19 23:54 117 H 99 07/16/19 23:53 88 121/62 07/16/19 23:49 103 H 133/65 93 07/16/19 23:44 106 H 92 07/16/19 23:43 93 H 121/63 94 07/16/19 23:40 100 H 133/70 07/16/19 23:39 100 H 95 07/16/19 23:38 114 H 94 07/16/19 23:35 99 H 123/64 07/16/19 23:34 97 H 96 07/16/19 23:31 93 H 94 07/16/19 23:30 97 H 123/65 07/16/19 23:29 107 H 98 07/16/19 23:25 101 H 94 07/16/19 23:24 96 H 142/67 96 07/16/19 23:19 112 H 91 07/16/19 23:18 99 H 124/60 07/16/19 23:15 97 H 131/68 07/16/19 23:14 98 H 96 07/16/19 23:10 103 H 129/61 07/16/19 23:09 87 95 07/16/19 23:05 99 H 127/65 07/16/19 23:04 100 H 97 07/16/19 23:03 113 H 91 07/16/19 22:59 115 H 124/64 88 07/16/19 22:56 105 H 93 07/16/19 22:55 95 H 126/71 07/16/19 22:54 106 H 97 07/16/19 22:50 105 H 94 07/16/19 22:49 99 H 132/79 97 07/16/19 22:45 105 H 93 07/16/19 22:44 102 H 147/65 95 07/16/19 22:33 93 H 105/56 07/16/19 22:29 95 H 115/58 07/16/19 22:26 44 L 88 07/16/19 22:25 113 H 141/71 07/16/19 22:24 107 H 95 07/16/19 22:19 97 H 97 07/16/19 22:14 97 H 124/71 98 07/16/19 22:13 113 H 93 07/16/19 22:09 90 105/58 07/16/19 22:08 100 H 97 07/16/19 22:07 91 H 93 07/16/19 22:05 100 H 130/82 07/16/19 22:03 104 H 98 07/16/19 21:59 95 H 127/75 07/16/19 21:58 92 H 99 07/16/19 21:53 82 98 07/16/19 21:49 120 H 134/63 07/16/19 21:48 125 H 98 07/16/19 21:44 93 H 118/65 07/16/19 21:43 92 H 99 07/16/19 21:40 96 H 137/88 07/16/19 21:38 108 H 98 07/16/19 21:33 87 111/59 98 07/16/19 21:28 90 110/59 98 07/16/19 21:24 90 112/56 07/16/19 21:23 79 100 07/16/19 21:18 111 H 99 07/16/19 21:14 100 H 113/63 07/16/19 21:13 99 H 96 07/16/19 21:12 85 90 07/16/19 21:09 91 H 131/74 07/16/19 21:08 83 98 07/16/19 21:03 94 H 113/58 100 07/16/19 20:58 91 H 117/57 98 07/16/19 20:54 101 H 122/58 07/16/19 20:53 107 H 92 07/16/19 20:48 104 H 122/59 99 07/16/19 20:45 33 L 94 07/16/19 20:44 113 H 123/58 07/16/19 20:43 104 H 98 07/16/19 20:40 105 H 135/62 07/16/19 20:39 85 91 07/16/19 20:38 86 94 07/16/19 20:33 116 H 122/72 100 07/16/19 20:29 121 H 120/75 07/16/19 20:28 118 H 99 07/16/19 20:23 104 H 119/65 100 07/16/19 20:20 72 94 07/16/19 20:18 97 H 104/62 100 07/16/19 20:13 104 H 102/61 99 07/16/19 20:09 99 H 109/61 07/16/19 20:08 103 H 100 07/16/19 20:04 117 H 100/55 07/16/19 20:03 110 H 95 07/16/19 19:59 131 H 115/73 07/16/19 19:58 126 H 99 07/16/19 19:53 98 H 107/55 100 07/16/19 19:49 93 H 104/63 07/16/19 19:48 97 H 100 07/16/19 19:44 104 H 107/56 07/16/19 19:43 96 H 99 07/16/19 19:39 98 H 106/60 07/16/19 19:38 109 H 99 07/16/19 19:33 103 H 100/58 95 07/16/19 19:28 100 H 101/58 99 07/16/19 19:23 97 H 102/60 99 07/16/19 19:18 94 H 101/59 99 07/16/19 19:17 98.5 F 94 H 18 99 07/16/19 19:13 98 H 100 07/16/19 19:09 96 H 113/73 07/16/19 19:08 98 H 100 07/16/19 19:04 116 H 86/50 07/16/19 19:03 102 H 100 07/16/19 18:59 108 H 112/58 07/16/19 18:58 109 H 99 07/16/19 18:53 109 H 95/50 98 07/16/19 18:48 99 H 103/56 98 07/16/19 18:43 105 H 105/55 98 07/16/19 18:42 105 H 113/57 07/16/19 18:39 65 86 07/16/19 18:38 98 H 97 07/16/19 18:34 94 H 127/84 92 07/16/19 18:33 89 98 07/16/19 18:28 107 H 96/51 98 07/16/19 18:26 106 H 92/51 07/16/19 18:25 110 H 87/49 07/16/19 18:23 111 H 97 07/16/19 18:21 112 H 94 07/16/19 18:18 109 H 92/54 96 07/16/19 18:13 119 H 92/51 95 07/16/19 18:11 117 H 94 07/16/19 18:08 119 H 93/52 96 07/16/19 18:03 117 H 95/51 99 07/16/19 17:58 97.8 F 113 H 97/54 07/16/19 17:57 118 H 99 07/16/19 17:53 104 H 100/56 07/16/19 17:52 101 H 100 07/16/19 17:51 101 H 99/52 07/16/19 17:49 104 H 94/52 07/16/19 17:47 104 H 117/56 100 07/16/19 17:45 93 H 123/67 07/16/19 17:42 101 H 100 07/16/19 17:37 118 H 111/60 96 07/16/19 17:35 111 H 102/59 07/16/19 17:32 106 H 98 07/16/19 17:31 77 122/62 07/16/19 17:29 92 H 117/55 07/16/19 17:27 88 130/60 100 07/16/19 17:25 71 124/62 07/16/19 17:23 130 H 88/52 07/16/19 17:22 132 H 100 07/16/19 17:21 121 H 92/52 07/16/19 17:19 108 H 18 96/57 07/16/19 17:18 114 H 91/50 07/16/19 17:17 119 H 91/52 97 07/16/19 17:15 108 H 101/55 07/16/19 17:14 100 H 94/55 07/16/19 17:13 99 H 90/52 07/16/19 17:12 101 H 87/48 97 07/16/19 17:11 104 H 92/50 07/16/19 17:10 103 H 95/52 07/16/19 17:09 90 97/51 07/16/19 17:07 105 H 107/54 99 07/16/19 17:05 92 H 107/53 07/16/19 17:03 99 H 118/60 07/16/19 17:02 101 H 99 07/16/19 17:01 107 H 112/61 07/16/19 16:59 93 H 109/63 07/16/19 16:57 89 113/58 97 07/16/19 16:55 85 110/56 07/16/19 16:52 99 H 121/77 98 07/16/19 16:51 86 122/75 07/16/19 16:50 85 122/74 07/16/19 16:49 76 84 07/16/19 16:47 90 100 07/16/19 16:42 83 100 07/16/19 16:37 96 H 97 07/16/19 16:32 100 H 98 07/16/19 16:26 83 97 07/16/19 16:12 82 100 07/16/19 16:07 73 99 07/16/19 16:05 89 92 07/16/19 16:02 77 99 07/16/19 15:59 86 92 07/16/19 15:57 72 100 07/16/19 15:52 85 100 07/16/19 15:47 90 100 07/16/19 15:43 82 122/68 07/16/19 15:42 85 100 07/16/19 15:37 103 H 96 Intake and Output 07/16/19 07/17/19 07/17/19 22:59 06:59 14:59 Intake Total 1300 Output Total 700 2050 Balance -700 -750 Intake: IV 1300 Output: Urine 700 2050 Indwelling Catheter 700 900 Other: Total, Output Amount 700 200 Weight 218 lb Estimated Blood Loss 500 - Exam Breasts: Present: deferred Cardiovascular: Present: Regular rate, Normal S1, Normal S2 Lungs: Present: Normal air movement Abdomen: Present: normal appearance, normal bowel sounds Vulva: both: normal Uterus: Present: normal, firm, fundal height at umbilicus (Moderate lochia rubra) Extremities: Present: normal Deep Tendon Reflex Grade: Normal +2 Incision: Present: dry, intact, dressed - Labs Labs: Abnormal lab results 07/16/19 Range/Units 16:10 WBC 17.0 H (4.5-11.0) K/mm3 RBC 5.58 H (3.65-5.03) M/mm3 Hgb 14.4 H (10.1-14.3) gm/dl Hct 43.5 H (30.3-42.9) % MCV 78 L (79-97) fl MCH 26 L (28-32) pg
[2019-07-17] MEDS: KETOROLAC 30 MG/1 ML INJ IV SCH ×2 (10:46→18:33)
[2019-07-17] MEDS ORDERED: FLU VACC QUAD 2019-20 (3 YR UP)/PF 60 MCG/0.5 ML SYRINGE IM ONE (12:00)
[2019-07-17 17:08] LABS: Hematocrit 33.3 % (30.3-42.9); Hemoglobin 10.6 gm/dl (10.1-14.3)
--- NOTE | 2019-07-17 22:25 | Post Anesthesia Evaluation ---
- Post Anesthesia Evaluation Patient Participated: Yes Airway Patent: Yes Stable Respiratory Function: Yes Nausea/Vomiting: No Temp > 96.8F: Yes Pain Manageable: Yes Adequeate Hydration: Yes Anesthesia Complications: No Block Receding Appropriately: Yes Patient on Ventilator: No
[2019-07-18] MEDS: KETOROLAC 30 MG/1 ML INJ IV SCH (02:38)
[2019-07-18] MEDS ORDERED: TETANUS,DIPH,PERTUSS(ACELL) VACCINE 0.5 ML SYRINGE IM ONE (06:00)
--- NOTE | 2019-07-18 08:08 | Progress Note ---
Assessment and Plan pt doing well, no complaints. bonding well with . Dressing D&I - advised pt to shower this AM and rn will remove after shower. H&H 10.6/33.3. VSSAF. - Patient Problems (1) delivery delivered Current Visit: Yes Status: Acute Plan to address problem: Continue postop pathway anticipate d/c home tomorrow if patient stable Subjective - Subjective Date of service: 07/18/19 Principal diagnosis: postop day #1 s/p primary c/s Patient reports: appetite normal, voiding normally, pain well controlled, a mbulating normally, no dizzy ambulation, no nauseated : doing well, nursing well Objective - Vital Signs Latest vital signs: Vital Signs Temp Pulse Resp BP BP Pulse Ox 07/18/19 03:08 18 07/18/19 02:38 18 07/18/19 00:57 18 07/18/19 00:00 98.6 F 74 18 101/78 07/17/19 23:57 18 07/17/19 22:01 18 07/17/19 21:01 18 07/17/19 20:00 98.7 F 86 18 96/65 07/17/19 19:03 18 07/17/19 17:13 20 07/17/19 15:38 97.8 F 87 20 101/61 96 07/17/19 11:34 97.9 F 75 20 98/53 96 07/17/19 08:40 97.9 F 89 20 101/56 95 Intake and Output 07/17/19 07/18/19 07/18/19 23:59 07:59 15:59 Intake Total 360 Output Total 1200 600 Balance -840 -600 Intake: Oral 360 Output: Urine 1200 600 Void 1200 600 Other: Total, Intake Amount 360 Total, Output Amount 800 600 # Voids Void 1 1 - Exam Breasts: Present: normal, Cardiovascular: Present: Regular rate Lungs: Present: Clear to auscultation, Normal air movement Abdomen: Present: normal appearance, soft Vulva: both: normal Uterus: Present: normal, firm, fundal height at umbilicus Extremities: Present: normal Deep Tendon Reflex Grade: Normal +2 Incision: Present: normal, dry, dressed
[2019-07-18] MEDS: oxyCODONE /ACETAMINOPHEN 5-325MG TAB PO PRN ×2 (08:45→16:51)
[2019-07-18] MEDS: IBUPROFEN 800 MG TAB PO PRN (20:09)
[2019-07-19] MEDS: oxyCODONE /ACETAMINOPHEN 5-325MG TAB PO PRN ×2 (01:45→10:00)
[2019-07-19] MEDS: IBUPROFEN 800 MG TAB PO PRN (06:04)
--- NOTE | 2019-07-19 08:55 | Discharge Summary ---
Providers - Providers Date of Admission: 07/16/19 15:37 Date of discharge: 07/19/19 (Pt desires to go home.) Attending physician: JONATHAN LEIVA 07/17/19 02:26 Consult to [employer] [CONS] Routine Reason For Exam: Primary care physician: JONATHAN LEIVA Hospitalization Reason for admission: active labor Delivery: Procedure: primary low transverse Episiotomy: none Laceration: none Incision: normal, dry (No s/sx of infection. No drainage noted. ), intact Other procedures: none complications: none Discharge diagnosis: IUP at term delivered baby: male Hospital course: S: Pt doing well and wants to go home. She was a primary and is POD #2. States that she is ambulating, voiding, and passing flatus. Pain is well controlled. O: VSS, Fundus firm, Minimal bleeding, H/H 10.6/33.3. Incision with steri strtips in tact, open to air. No s/sx of infection. No drainage noted. A: 24 y.o. s/p , POD #2, desiring to go home. P: Discharge home with instructions. Schedule an appointment in 1 week for incision check and circumcision Schedule 4 week visit. Condition at discharge: Good Disposition: DC-01 TO HOME OR SELFCARE Plan - Discharge Medications Prescriptions: Lidocain2.5%/Prilocai2.5% [Emla] 5 gm TP ONCE #1 tube Ibuprofen [Motrin 800 MG tab] 800 mg PO TID PRN #30 tablet PRN Reason: Pain oxyCODONE /ACETAMINOPHEN [Percocet 5/325 mg] 1 - 2 tab PO Q4HR PRN #20 tablet PRN Reason: Pain - Provider Discharge Summary Activity: routine, no sex for 6 weeks, no heavy lifting 4 weeks, no strenuous exercise Diet: routine Instructions: routine Additional instructions: [] Smoking cessation referral if applicable(refer to patient education folder for contact #) [] Refer to [facility] Booklet Call your doctor immediately for: * Fever > 100.5 * Heavy vaginal bleeding ( >1 pad per hour) * Severe persistent headache * Shortness of breath * Reddened, hot, painful area to leg or breast * Drainage or odor from incision. * Keep incision clean and dry at all times and follow doctor's instructions regarding bathing/showering - Follow up plan Follow up: JONATHAN LEIVA MD [Primary Care Provider] - 7 Days (Congratulations!!! Please schedule an appointment in 1 week for incision check. Please schedule an appointme tin 1 week for circumcision. You have been prescribed EMLA cream. Do not use on baby at home. Bring with you to circumcision appointment. Take all medication as prescribed. [address] [facility], [address] )
[2019-07-19 14:18] VITALS: BP 104/70
== END 2019-07-19 14:45 | disposition home or self-care (01) | DRG 766 ==
LOC: LD 15:36 → TRG 15:36 → LD 15:37 → TRG 15:37 → OB 07-17 04:10
PROVIDERS: ADMIT Obstetrics & Gynecology; ATTEND Obstetrics & Gynecology
PROC: 10H07YZ Insertion of Other Device into Products of Conception, Via Natural or Artificial Opening (ICD-10-PCS; 2019-07-16)
PROC: 10D00Z1 Extraction of Products of Conception, Low, Open Approach (ICD-10-PCS; principal; 2019-07-17)
DX: O76 Abnormality in fetal heart rate and rhythm complicating labor and delivery (principal); O77.0 Labor and delivery complicated by meconium in amniotic fluid; O62.0 Primary inadequate contractions; Z3A.38 38 weeks gestation of pregnancy; Z37.0 Single live birth
CPT/HCPCS: 36415; 85014; 85018; 85027; 86592; 86850; 86900; 86901; 90686; G0378; A6250; J0690; J1170; J1885; J2370; J2405; J2590; J2765; J3490; J7120; J7121